=== PATIENT | female | born 1930 | race Caucasian/White ===

== ENCOUNTER 2016-07-09 00:53 | Emergency (ER) | payer MEDICARE, BC ==
[2016-07-09] MEDS ORDERED: Metoprolol Tartrate 25 MG Tab PO ONE (02:10)
--- NOTE | 2016-07-09 02:10 | EDM.PDOC ---
ED HPI Trauma - General Chief Complaint: General Stated Complaint: L) wrist swelling and numbness Time Seen by Provider: 07/09/16 01:37 Source: Reports: Patient History Limitations: Reports: No limitations - History of Present Illness INITIAL COMMENTS - FREE TEXT/NARRATIVE: Left wrist pain and swelling that was first noted yesterday morning after patient woke up from sleep. Now with some redness. Has tingling sensation in all fingers. Sometimes has discomfort that radiates up her arm at times. Denies fevers/chills/sweats. No history of similar problem in past. No history of trauma. No other complaints. Allergies/ADRs: Allergies Penicillins Allergy (Verified 09/26/13 17:01) Rash Sulfa (Sulfonamide Antibiotics) Allergy (Verified 07/09/16 01:12) Other Home Medications: Ambulatory Orders Aspirin [Jordyn Chewable Aspirin] 81 mg PO DAILY 09/26/13 [Confirmed 07/09/16] Cholecalciferol (Vitamin D3) [Vitamin D3] 2,000 unit PO DAILY PRN 09/26/13 [ Confirmed 07/09/16] Famotidine 20 mg PO BID PRN 09/26/13 [Confirmed 07/09/16] Fluticasone Propionate [Flonase] 16 gm NS DAILY 09/26/13 [Confirmed 07/09/16] Fluticasone/Salmeterol [Advair 500-50] 1 puff INH DAILY 09/26/13 [Confirmed ] Hydroxychloroquine [Plaquenil] 200 mg PO DAILY 09/26/13 [Confirmed 07/09/16] Lisinopril [Zestril] 20 mg PO QPM 09/26/13 [Confirmed 07/09/16] Multivitamin [Multi-Vitamin Daily] 1 each PO DAILY 09/26/13 [Confirmed 07/09/16] Omeprazole 20 mg PO BEDTIME 09/26/13 [Confirmed 07/09/16] Pravastatin [Pravachol] 10 mg PO BEDTIME 09/26/13 [Confirmed 07/09/16] Vit A/Vit C/Vit E/Zinc/Copper [Preservision] 1 each PO DAILY 09/26/13 [ Confirmed 07/09/16] Zafirlukast [Accolate] 20 mg PO BID 09/26/13 [Confirmed 07/09/16] Past Medical History Cardiovascular History: Reports: High cholesterol, Hypertension Respiratory History: Reports: COPD Gastrointestinal History: Reports: GERD Musculoskeletal History: Reports: Osteoarthritis, Other (see below) (Was told she did not have rhumatoid arthritis) Social & Family History - Tobacco Use Smoking Status *Q: Never Smoker Second Hand Smoke Exposure: Yes - Caffeine Use Caffeine Use: Reports: Coffee - Alcohol Use Days Per Week of Alcohol Use: 0 - Recreational Drug Use Recreational Drug Use: No - Living Situation & Occupation Living situation: Reports: (In 1950) Occupation: unemployed ([employer] ) Review of Systems - Review of Systems Review Of Systems: ROS reveals no pertinent complaints other than HPI. Trauma Exam - Physical Exam Exam: See Below Exam Limited By: No limitations General Appearance: Reports: alert, WD/WN, no apparent distress Head: Reports: atraumatic, normocephalic Eyes: bilateral eye: EOMI Throat/Mouth: Reports: Normal voice, No airway compromise Neck: Reports: full range of motion Respiratory Exam: Reports: no respiratory distress Extremities: Reports: other (Left wrist swollen, puffy, red, warm to touch. Both medially and laterally. Fingers did not appear more puffy when compared to right hand.) Neurologic: Reports: alert, normal mood/affect, oriented x 3 Skin: Denies: Diaphoresis Course - Vital Signs Last Recorded V/S: Last Vital Signs Temp 36.6 C 07/09/16 00:55 Pulse 97 07/09/16 01:47 Resp 20 07/09/16 01:47 BP 169/78 H 07/09/16 01:47 Pulse Ox 96 07/09/16 01:47 - Orders/Labs/Meds Orders: Active Orders 24 hr Category Date Time Status Wrist Comp Min 3V Lt [CR] Stat Exams 07/09/16 01:07 Taken ESR [SEDIMENTATION RATE MANUAL] [HEME] Stat Lab 07/09/16 01:49 Ordered Labs: Laboratory Tests 07/09/16 07/09/16 Range/Units 01:15 01:15 WBC 6.3 (4.0-10.2) K/uL RBC 4.28 (3.77-5.09) M/uL Hgb 12.7 (11.7-15.5) g/dL Hct 37.5 (34.0-46.0) % MCV 87.6 (84.0-98.0) fL MCH 29.7 (28.2-33.3) pg MCHC 33.9 (31.7-36.0) g/dL RDW 13.0 (11.2-14.1) % Plt Count 188 (150-350) K/uL Neut % (Auto) 47.1 (45.0-80.0) % Lymph % (Auto) 28.2 (10.0-50.0) % [place] % (Auto) 19.3 H (2.0-14.0) % Eos % (Auto) 4.6 (0.0-5.0) % Baso % (Auto) 0.8 (0.0-2.0) % Neut # (Auto) 2.97 (1.40-7.00) K/uL Lymph # (Auto) 1.78 (0.50-3.50) K/uL [place] # (Auto) 1.22 H (0.00-1.00) K/uL Eos # (Auto) 0.29 (0.00-0.50) K/uL Baso # (Auto) 0.05 (0.00-0.20) K/uL Uric Acid 4.5 (2.6-7.2) mg/dL C-Reactive Protein 0.5 (<=0.9) mg/dL Meds: Medications Discontinued Medications Generic Name Dose Route Start Last Admin Trade Name Freq PRN Reason Stop Dose Admin Metoprolol Tartrate 25 mg 07/09/16 02:10 Lopressor PO 07/09/16 02:11 ONETIME ONE - Radiology Interpretation Free Text/Narrative:: Wrist xray shows age-related changes to bones/joints but no obvious fracture. - Re-Assessments/Exams Free Text/Narrative Re-Assessment/Exam: 07/09/16 02:24 Normal WBC. CRP and Uric acid normal. ESR pending being performed later today. Biggest concern is possible septic joint. Cannot fully rule out possible vascular issue and need for US study. Differential also includes gout however uric acid normal. Plan at this time is to have patient go to [place] for evaluation at [facility]. They have US available and can also perform joint aspiration for further workup. Ortho available for consult. Single dose Metoprolol give prior to discharge from ER as patient's BP elevated. She did take ASA prior to coming to the ER. Departure - Departure Time of Disposition: 02:08 Disposition: DC/Tfer to Acute Hospital 02 Condition: good Clinical Impression: Pain and swelling of left wrist Referrals: PCP,None [Primary Care Provider] - Forms: ED Department Discharge, Interfacility Transfer [facility] Additional Instructions: Drive directly to [facility] for further evaluation. - My Orders Last 24 Hours: My Active Orders 07/09/16 01:07 Wrist Comp Min 3V Lt [CR] Stat 07/09/16 01:49 ESR [SEDIMENTATION RATE MANUAL] [HEME] Stat - Assessment/Plan Last 24 Hours: My Active Orders 07/09/16 01:07 Wrist Comp Min 3V Lt [CR] Stat 07/09/16 01:49 ESR [SEDIMENTATION RATE MANUAL] [HEME] Stat
[2016-07-09 02:35] VITALS: BP 164/84
== END 2016-07-09 02:29 ==
LOC: LL.ED 00:53
DX: M25.432 Effusion, left wrist (principal); E78.00 Pure hypercholesterolemia, unspecified; I10 Essential (primary) hypertension; J44.9 Chronic obstructive pulmonary disease, unspecified; K21.9 Gastro-esophageal reflux disease without esophagitis; M19.90 Unspecified osteoarthritis, unspecified site; Z88.0 Allergy status to penicillin; Z88.2 Allergy status to sulfonamides; Z79.899 Other long term (current) drug therapy
CPT/HCPCS: 36415; 73110; 84550; 85025; 85651; 86140; 99284; A9270

== ENCOUNTER 2016-12-12 19:27 | Emergency (ER) | payer MEDICARE, BC ==
[2016-12-12] MEDS ORDERED: Albuterol/Ipratropium 3.0-0.5 MG/3 ML Neb Soln NEB ONE (20:00)
--- NOTE | 2016-12-12 20:13 | EDM.PDOC ---
ED HPI GENERAL MEDICAL PROBLEM - General Chief Complaint: General Stated Complaint: Short of breath Time Seen by Provider: 12/12/16 19:50 Source of Information: Reports: Patient History Limitations: Reports: No Limitations - History of Present Illness INITIAL COMMENTS - FREE TEXT/NARRATIVE: Patient is a 86-year-old who for the past 2 weeks had has progressive shortness of breath she has history of COPD and was seen by primary a few days ago and started on albuterol inhaler patient was using the inhaler about 4 times a day but as of today was having increased difficulty breathing came in for evaluation he denies any fever cough. 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 Treatments - Related Data Allergies Allergy/AdvReac Type Severity Reaction Status Date / Time Penicillins Allergy Rash Verified 09/26/13 17:01 Sulfa (Sulfonamide Allergy Other Verified 07/09/16 01:12 Antibiotics) Home Meds: Home Meds Aspirin [Jordyn Chewable Aspirin] 81 mg PO DAILY 09/26/13 [History] Cholecalciferol (Vitamin D3) [Vitamin D3] 2,000 unit PO DAILY PRN 09/26/13 [ History] Famotidine 20 mg PO BID PRN 09/26/13 [History] Fluticasone Propionate [Flonase] 16 gm NS DAILY 09/26/13 [History] Fluticasone/Salmeterol [Advair 500-50] 1 puff INH DAILY 09/26/13 [History] Hydroxychloroquine [Plaquenil] 200 mg PO DAILY 09/26/13 [History] Lisinopril [Zestril] 20 mg PO QPM 09/26/13 [History] Multivitamin [Multi-Vitamin Daily] 1 each PO DAILY 09/26/13 [History] Omeprazole 20 mg PO BEDTIME 09/26/13 [History] Pravastatin [Pravachol] 10 mg PO BEDTIME 09/26/13 [History] Vit A/Vit C/Vit E/Zinc/Copper [Preservision] 1 each PO DAILY 09/26/13 [History] Zafirlukast [Accolate] 20 mg PO BID 07/01/14 [History] Past Medical History Cardiovascular History: Reports: High Cholesterol, Hypertension Respiratory History: Reports: COPD Gastrointestinal History: Reports: GERD Musculoskeletal History: Reports: Osteoarthritis, Other (See Below) Social & Family History - Tobacco Use Smoking Status *Q: Never Smoker Second Hand Smoke Exposure: Yes - Caffeine Use Caffeine Use: Reports: Coffee - Alcohol Use Days Per Week of Alcohol Use: 0 - Recreational Drug Use Recreational Drug Use: No - Living Situation & Occupation Living situation: Reports: Occupation: Unemployed ED ROS GENERAL - Review of Systems Review Of Systems: See Below Constitutional: Reports: No Symptoms HEENT: Reports: No Symptoms Respiratory: Reports: Shortness of Breath Cardiovascular: Reports: No Symptoms Endocrine: Reports: No Symptoms GI/Abdominal: Reports: No Symptoms : Reports: No Symptoms Musculoskeletal: Reports: No Symptoms Skin: Reports: No Symptoms Neurological: Reports: No Symptoms Psychiatric: Reports: No Symptoms Hematologic/Lymphatic: Reports: No Symptoms Immunologic: Reports: No Symptoms ED EXAM, GENERAL - Physical Exam Exam: See Below Exam Limited By: No Limitations General Appearance: Alert, WD/WN, Mild Distress Ears: Normal External Exam, Normal Canal, Hearing Grossly Normal, Normal TMs Nose: Normal Inspection, Normal Mucosa, No Blood Throat/Mouth: Normal Inspection, Normal Lips, Normal Teeth, Normal Gums, Normal Oropharynx, Normal Voice, No Airway Compromise Head: Atraumatic, Normocephalic Neck: Normal Inspection, Supple, Non-Tender, Full Range of Motion Respiratory/Chest: Respiratory Distress, Decreased Breath Sounds, Wheezing Cardiovascular: Normal Peripheral Pulses, Regular Rate, Rhythm, No Edema, No Gallop, No JVD, No Murmur, No Rub GI/Abdominal: Normal Bowel Sounds, Soft, Non-Tender, No Organomegaly, No Distention, No Abnormal Bruit, No Mass (Female) Exam: Deferred Rectal (Female) Exam: Deferred Back Exam: Normal Inspection, Full Range of Motion, NT Extremities: Normal Inspection, Normal Range of Motion, Non-Tender, Normal Capillary Refill, No Pedal Edema Neurological: Alert, Oriented, CN II-XII Intact, Normal Cognition, Normal Gait, Normal Reflexes, No Motor/Sensory Deficits Psychiatric: Normal Affect, Normal Mood Skin Exam: Warm, Dry, Intact, Normal Color, No Rash Course - Vital Signs Last Recorded V/S: Last Vital Signs Temp 98.5 F 12/12/16 19:28 Pulse 99 12/12/16 19:28 Resp 24 H 12/12/16 19:28 BP 202/82 H 12/12/16 19:28 Pulse Ox 96 12/12/16 19:28 - Orders/Labs/Meds Orders: Active Orders 24 hr Category Date Time Status RT Aerosol Therapy [RC] ASDIRECTED Care 12/12/16 20:01 Active Chest 2V [CR] Stat Exams 12/12/16 20:00 Ordered BASIC METABOLIC PANEL,BMP [CHEM] Stat Lab 12/12/16 19:59 Ordered CBC WITH AUTO DIFF [HEME] Stat Lab 12/12/16 19:59 Ordered PRO B-TYPE NATRIUR PEPT,BNPPRO [CHEM] Stat Lab 12/12/16 19:59 Ordered Meds: Medications Discontinued Medications Generic Name Dose Route Start Last Admin Trade Name Freq PRN Reason Stop Dose Admin Albuterol/Ipratropium 3 ml 12/12/16 20:00 Duoneb 3.0-0.5 Mg/3 Ml NEB 12/12/16 20:01 ONETIME ONE Departure - Departure Time of Disposition: 20:58 Disposition: Home, Self-Care 01 Condition: Fair Clinical Impression: COPD, Mild chronic obstructive pulmonary disease - Discharge Information Referrals: Jose Vanessa, PA [Primary Care Provider] - Care Plan Goals: Patient to take prednisone 20 mg twice a day for 5 days she is to follow-up with her primary in 3 days continue taking inhaler 2 puffs every 4 hours as needed - My Orders Last 24 Hours: My Active Orders 12/12/16 19:59 BASIC METABOLIC PANEL,BMP [CHEM] Stat CBC WITH AUTO DIFF [HEME] Stat PRO B-TYPE NATRIUR PEPT,BNPPRO [CHEM] Stat 12/12/16 20:00 Chest 2V [CR] Stat 12/12/16 20:01 RT Aerosol Therapy [RC] ASDIRECTED - Assessment/Plan Last 24 Hours: My Active Orders 12/12/16 19:59 BASIC METABOLIC PANEL,BMP [CHEM] Stat CBC WITH AUTO DIFF [HEME] Stat PRO B-TYPE NATRIUR PEPT,BNPPRO [CHEM] Stat 12/12/16 20:00 Chest 2V [CR] Stat 12/12/16 20:01 RT Aerosol Therapy [RC] ASDIRECTED
[2016-12-12] MEDS ORDERED: methylPREDNISolone Sod Succ 125 MG in Sodium Chloride 0.9% 100 ML IV ONE (20:25)
[2016-12-12 20:28] LABS: CHLORIDE,CL 101 mmol/L (98-107); SODIUM,NA 138 mmol/L (136-145)
[2016-12-12] MEDS ORDERED: methylPREDNISolone Sodium Succinate 125 MG/2 ML SDV IVPUSH ONE (20:31)
[2016-12-12] MEDS ORDERED: Sodium Chloride 0.9% 10 ML Syringe FLUSH PRN (20:39)
[2016-12-13 06:14] VITALS: BP 165/75
== END 2016-12-12 21:00 | disposition home or self-care (01) ==
LOC: LL.ED 19:27
DX: J44.9 Chronic obstructive pulmonary disease, unspecified (principal); E78.00 Pure hypercholesterolemia, unspecified; I10 Essential (primary) hypertension; K21.9 Gastro-esophageal reflux disease without esophagitis; M19.90 Unspecified osteoarthritis, unspecified site; Z88.0 Allergy status to penicillin; Z88.2 Allergy status to sulfonamides; Z79.82 Long term (current) use of aspirin; Z79.899 Other long term (current) drug therapy
CPT/HCPCS: 36415; 71020; 80048; 83880; 85025; 94640; 96374; 99285; J2930; J7050; 94664; 99284

== ENCOUNTER 2020-03-15 01:20 | Emergency (ER) | payer MEDICARE, BC ==
--- NOTE | 2020-03-15 01:44 | EDM.PDOC ---
ED HPI GENERAL MEDICAL PROBLEM - General Chief Complaint: Cardiovascular Problem Stated Complaint: HTN Time Seen by Provider: 03/15/20 01:35 Source of Information: Reports: Patient, Family (Daughter, Elizabeth), Old Records ([facility] chart/EMR) History Limitations: Reports: No Limitations - History of Present Illness INITIAL COMMENTS - FREE TEXT/NARRATIVE: The patient was brought to the emergency room via private automobile for evaluation of her blood pressures with patient having elevated blood pressures this evening after taking her to usual nebulizer treatments. She measured her blood pressure at 11:25 PM with blood pressure 188/104 with last blood pressure prior to arrival of 208/113. She denies any medication noncompliance. The patient denies any chest pain/pressure, heart flutter, dizziness, orthostasis, orthopnea, diaphoresis, paresthesias, recent decreased exercise tolerance, or any other anginal-type symptoms. No recent history of abdominal pain, heartburn, nausea, diarrhea, melena, gross hematochezia, or any food intolerance, including fatty foods, etc.. The patient also denies any recent fever, cough, wheezing, dyspnea, etc.. No history of recent visual changes, diplopia, change in mental status, or other change in neurological status, although a mild 3/10 bilateral frontal headache earlier this evening with headache resolved after 325 mg of aspirin was taken at that time. Onset: Gradual Onset Date: 03/14/20 Onset Time: 23:25 Duration: Improving (Headache), Resolved Prior to Arrival (Headache) Location: Reports: Head Quality: Reports: Dull, Same as Previous Episode Severity: Mild Improves with: Reports: Medication Worsens with: Reports: None Context: Reports: Other (None). Denies: Sick Contact, Trauma Associated Symptoms: Reports: Headaches. Denies: Confusion, Chest Pain, Cough, Diaphoresis, Fever/Chills, Malaise, Nausea/Vomiting, Seizure, Shortness of Breath, Syncope, Weakness Treatments APPLICATION DEVELOPMENT TEAM LEAD: Reports: Aspirin Headache Pain Score (Numeric/FACES): 3 - Related Data Allergies Allergy/AdvReac Type Severity Reaction Status Date / Time Penicillins Allergy Rash Verified 03/15/20 01:35 Sulfa (Sulfonamide Allergy Other Verified 03/15/20 01:35 Antibiotics) Home Meds: Home Meds Aspirin [Halfprin] 81 mg PO DAILY PRN 12/13/16 [History] Cholecalciferol (Vitamin D3) [Vitamin D3] 2 tab PO DAILY 12/13/16 [History] Famotidine 20 mg PO BID 12/13/16 [History] Fluticasone Propionate [Flonase] 2 spray NASBOTH DAILY 12/13/16 [History] Vit C/E/Zn/Coppr/Lutein/Zeaxan [Preservision Areds 2 Softgel] 1 each PO BID 12/13/16 [History] lisinopriL [Zestril] 20 mg PO DAILY 12/13/16 [History] Albuterol Sulfate [Albuterol Sulfate Hfa] 1 - 2 puff IH Q4HR 03/15/20 [History] Ascorbate Calcium [Vitamin C] 500 mg PO DAILY 03/15/20 [History] Elderberry Fruit and Flower [Black Elderberry 575 mg Cap] 1 each PO DAILY 03/15/20 [History] Formoterol Fumarate [Perforomist] 2 ml IH BID 03/15/20 [History] Montelukast Sodium [Singulair] 10 mg PO BEDTIME 03/15/20 [History] Zinc Gluconate [Zinc] 75 mg PO DAILY 03/15/20 [History] amLODIPine [Norvasc] 5 mg PO QPM #30 tab 03/15/20 [Rx] Past Medical History HEENT History: Reports: Allergic Rhinitis, Cataract, Hard of Hearing, Impaired Vision, Macular Degeneration, Other (See Below). Denies: Glaucoma, Otitis Media, Retinal Detachment Other HEENT History: Macular degeneration of the left eye with current injection therapy. The patient does prophylaxis. 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 Cardiovascular History: Reports: Arrhythmia, Heart Murmur, High Cholesterol, Hypertension, PVD, Other (See Below). Denies: Afib, Aneurysm, Blood Clots /VTE/DVT, CAD, Cardiomyopathy, Heart Failure, MS, Syncope Other Cardiovascular History: First-degree AV block, PACs, and PVCs with borderline incomplete right bundle branch block with exercise. Aortic valve stenosis and mitral valve insufficiency by clinical exam with additional history of tricuspid valve insufficiency. Varicose veins. Carotid occlusive disease. Respiratory History: Reports: Bronchitis, Recurrent, COPD, Other (See Below). Denies: Asthma, Intubation, Difficult, Intubation, Previous, Pneumothorax, Sleep Apnea Other Respiratory History: COPD with nocturnal hypoxia with no current oxygen supplementation Gastrointestinal History: Reports: Cholelithiasis, Colon Polyp, Diverticulosis, Fecal Incontinence, Gastritis, GERD, Other (See Below). Denies: Celiac Disease, Chronic Constipation, Chronic Diarrhea, GI Bleed, Hepatitis, Inflammatory Bowel Disease, Irritable Bowel Syndrome, Jaundice, PUD Other Gastrointestinal History: Benign colonic polyps at the hepatic flexure and sigmoid regions on 02/27/2010. Positive H. pylori on 09/21/2001 with previous hemorrhagic gastritis by EGD. Duodenal polyp and duodenitis. Benign renal and hepatic cysts. Genitourinary History: Reports: Urinary Incontinence, Other (See Below). Denie s: Acute Renal Failure, Chronic Renal Insuffiency, Renal Calculus, Retention, Urinary, STD, UTI, Recurrent Other Genitourinary History: Proteinuria. Cystocele with urinary incontinence. 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 Full term without complications during pregnancies or deliveries. Musculoskeletal History: Reports: Arthritis, Back Pain, Chronic, Fracture, Neck Pain, Chronic, Osteoarthritis, Osteoporosis, Other (See Below). Denies: Gout, RA, SLE Other Musculoskeletal History: Right fifth metacarpal fracture on 08/17/2010. Hyperuricemia and history of pseudogout. Carpal tunnel syndrome with no surgeries. Cervical spondylosis by CT scan on 11/30/2006. Neurological History: Reports: Alzheimers Disease, Other (See Below). Denies: Cerebral Aneurysms, Concussion, CVA, Headaches, Chronic, Head Trauma, Migraines, MS, Neuropathy, Diabetic (Headaches), Neuropathy, Peripheral, Parkinson's (Any previous), Seizure, TIA Other Neuro History: Mild beginning organic brain syndrome. Psychiatric History: Reports: Alzheimers Disease, Anxiety, Dementia, Depression, Other (See Below). 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 Possible beginning brain syndrome. Endocrine/Metabolic History: Reports: Osteopenia, Osteoporosis, Other (See Below). Denies: Diabetes, Gestational, Diabetes, Type I, Diabetes, Type II, Diabetes Mellitus, Type 3c, Hypothyroidism, IDDM Other Endocrine/Metabolic History: Hyperglycemia with proteinuria as above. Hematologic History: Reports: Blood Transfusion(s), Other (See Below). Denies: Anemia, Iron Deficiency Other Hematologic History: Blood transfusion after cholecystectomy, etc. surgery in August 1958 as below. Immunologic History: Reports: None. Denies: AIDS, HIV, SLE Oncologic (Cancer) History: Reports: None. Denies: Basal Cell Carcinoma, Cervix, Colon, Hodgkin's Lymphoma, Leukemia, Lymphoma, Malignant Melanoma, Non- Hodgkin's Lymphoma, Ovarian, Squamous Cell Carcinoma, Uterine Dermatologic History: Reports: Eczema, Seborrheic Dermatitis, Other (See Below). Denies: Psoriasis Other Dermatologic History: Seborrheic keratosis. - Infectious Disease History Infectious Disease History: Reports: Chicken Pox, Measles, Shingles (Facial/forehead region the 1980s.), Other (See Below). 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 - Past Surgical History Head Surgeries/Procedures: Reports: None HEENT Surgical History: Reports: Oral Surgery, Other (See Below). Denies: Adenoidectomy, Cataract Surgery, Eye Surgery, Laser Surgery, LASIK, Myringotomy w Tube(s), Naso-Sinus Surgery, Tonsillectomy Other HEENT Surgeries/Procedures: Teeth extractions. Cardiovascular Surgical History: Reports: None. Denies: Varicose Respiratory Surgical History: Reports: None. Denies: Thoracentesis GI Surgical History: Reports: Appendectomy, Cholecystectomy, Colonoscopy, EGD, Polypectomy, Other (See Below). Denies: Hernia, Inguinal, Hernia Repair/Other Other GI Surgeries/Procedures: Open cholecystectomy with concomitant appendectomy and removal of a benign right ovarian cyst on 08/31/1958 with postoperative transfusion required. EGD on 09/26/2007 with results as above. Multiple previous colonoscopies including 02/26/2010 and 09/26/2007 with previous polypectomies as above. Female Surgical History: Reports: Other (See Below). Denies: Breast Biopsy, Section, D&C, Oophorectomy, Salpingo-Oophorectomy, Tubal Ligation Other Female Surgeries/Procedures: Excision of benign ovarian cyst as above. Endocrine Surgical History: Reports: None. Denies: Thyroid Biopsy Neurological Surgical History: Denies: C-Spine, Discectomy, Laminectomy, Lumbar Spine, Spinal Fusion, Thoracic Spine, Vertebroplasty Musculoskeletal Surgical History: Reports: None. Denies: Carpal Tunnel, Ganglion Cyst, Joint Replacement, ORIF, Shoulder Surgery Oncologic Surgical History: Reports: None Dermatological Surgical History: Reports: None - Past Imaging History Past Imaging History: Reports: Cardiac Echo (04/14/1999), Carotid US (Last on 12/15/2006.), DEXA Scan (Last on 08/13/2016.), Mammogram (02/12/2011.), PFT (Last on 01/12/2008), Sleep Study (Home nocturnal O2 evaluation on 03/14/2006.), Stress Testing (Cardiolite stress test last on 10/23/2004.), Ultrasound (Last abdominal ultrasound on 12/15/2006.), Other (See Below) (NC stat evaluation on 12/15/2007.) Social & Family History - Family History Cardiac: Reports: Arrhythmia, CAD, Heart Failure, Hypertension, MS Other Cardiac Family History: Father with fatal MS and CHF at age 59. Sister with fatal MS at age 78. Mother with unknown type of coronary artery disease. Hypertension in parents and sister. Daughter with PSVT in her 40s. Respiratory: Reports: Asthma, Other (See Below) Other Respiratory Family Hisory: Asthma in son, mother, sister, and grandson. GI: Reports: Colon Polyps, Other (See Below) Other GI Family History: Sister with colonic polyps. Neurological: Reports: CVA, Parkinson's, Other (See Below) Other Neurological Family History: Son with Parkinson's disease. Mother with CVA in her 70s. Father with CVA in his 50s. Endocrine/Metabolic: Reports: Diabetes, type II, IDDM, Other (See Below) Other Endocrine/Metabolic Family History: Father with AODM. Sister with IDDM. Nephew with type I IDDM. - Tobacco Use Tobacco Use Status *Q: Never Tobacco User Used Tobacco, but Quit: No Smoking Cessation Information Provided To Patient: No Second Hand Smoke Exposure: No Second Hand Smoke Education Provided: No - Caffeine Use Caffeine Use: Reports: Coffee (4 cups/day), Tea (Occasional). Denies: Energy Drinks, Soda - Alcohol Use Alcohol Use History: Yes Days Per Week of Alcohol Use: 0 Number of Drinks Per Day: 1 Number of Drinks Per Day Comment: Usually wine for holidays. No previous DWIs, problems with alcohol abuse, etc. Total Drinks Per Week: 0 Alcohol Use in Last Twelve Months: Yes Alcohol Use Frequency: Rarely - Recreational Drug Use Recreational Drug Use: No Drug Use in Last 12 Months: No Recreational Drug Type: Denies: Amphetamines (Speed), Heroin, Inhalants (Glues, Solvents, Aerosols), LSD (Acid), Marijuana/Hashish, Methamphetamine, Morphine, Oxycodone - Living Situation & Occupation Living situation: Reports: (1949.), with Family () Occupation: Unemployed ([employer]) ED ROS GENERAL - Review of Systems Review Of Systems: Comprehensive ROS is negative, except as noted in HPI. ED EXAM, GENERAL - Physical Exam Exam: See Below Exam Limited By: No Limitations General Appearance: Alert, WD/WN, No Apparent Distress, Anxious (Mild) Eye Exam: Bilateral Eye: EOMI, Normal Fundi, Normal Inspection (Patient is wearing glasses. No vertigo or nystagmus), PERRL Ears: Normal External Exam, Hearing Loss (Persistent moderate presbycusis despite bilateral hearing aid therapy) Nose: Normal Inspection, Normal Mucosa, No Blood Throat/Mouth: Normal Inspection, Normal Lips, Normal Teeth, Normal Gums, Normal Oropharynx, Normal Voice, No Airway Compromise. No: Dysphagia, Perioral Cyanosis Head: Atraumatic, Normocephalic. No: Facial Swelling, Facial Tenderness, Sinus Tenderness Neck: Supple, Non-Tender, Full Range of Motion, Carotid Bruit (Mild bilateral carotid bruits versus transmitted heart sounds). No: Lymphadenopathy (L), Lymphadenopathy (R), Thyromegaly Respiratory/Chest: No Respiratory Distress, Lungs Clear, Normal Breath Sounds, No Accessory Muscle Use, Chest Non-Tender. No: Pleural Rub, Retractions Cardiovascular: Normal Peripheral Pulses, Regular Rate, Rhythm, No Edema, No Gallop, No JVD, No Rub, Systolic Murmur (Mild 1/6 MALIKA of aortic and mitral va lves.). No: Gallop/S3, Gallop/S4, Friction Rub Peripheral Pulses: 2+: Radial (L), Radial (R), Dorsalis Pedis (L), Dorsalis Pedis (R) GI/Abdominal: Normal Bowel Sounds, Soft, Non-Tender, No Organomegaly, No Distention, No Abnormal Bruit, No Mass. No: Guarding (Female) Exam: Deferred Rectal (Female) Exam: Deferred Back Exam: Normal Inspection, Full Range of Motion. No: CVA Tenderness (L), CVA Tenderness (R), Muscle Spasm Extremities: Normal Inspection, Normal Range of Motion, Non-Tender, No Pedal Edema, Normal Capillary Refill. No: Greg's Sign Neurological: Alert, Oriented, CN II-XII Intact, Normal Cognition, Normal Gait, Normal Reflexes, No Motor/Sensory Deficits Psychiatric: Anxious (Mild). No: Depressed Mood Skin Exam: Warm, Dry, Intact, Normal Color, No Rash. No: Diaphoretic Lymphatic: No Adenopathy Course - Vital Signs Last Recorded V/S: Last Vital Signs Temp 36.5 C 03/15/20 01:20 Pulse 90 03/15/20 02:50 Resp 18 03/15/20 01:20 BP 161/81 H 03/15/20 02:50 Pulse Ox 98 03/15/20 01:35 Vital Signs - 24 hr 03/15/20 03/15/20 03/15/20 01:20 01:35 02:07 Temperature [ 36.5 C Temporal] Pulse, 101 H 94 91 Peripheral [ Pulse Oximetry] Respiratory 18 Rate Blood Pressure Blood Pressure 200/90 H [Left Upper Arm ] Blood Pressure 191/90 H 190/92 H 171/81 H [Right Upper Arm] O2 Sat by Pulse 98 98 Oximetry 03/15/20 03/15/20 03/15/20 02:15 02:23 02:50 Temperature [ Temporal] Pulse, 91 90 Peripheral [ Pulse Oximetry] Respiratory Rate Blood Pressure 171/81 H Blood Pressure 160/87 H [Left Upper Arm ] Blood Pressure 161/81 H [Right Upper Arm] O2 Sat by Pulse Oximetry - Orders/Labs/Meds Orders: Active Orders 24 hr Category Date Time Status Cardiac Monitoring [RC] . DIRECTED Care 03/15/20 01:45 Active Peripheral IV Care [RC] . DIRECTED Care 03/15/20 01:45 Active Sodium Chloride 0.9% [Saline Flush] Med 03/15/20 01:51 Active 10 ml FLUSH ASDIRECTED PRN Obtain Past Medical Record [OM.PC] Routine Oth 03/15/20 01:44 Active Medication Orders Sodium Chloride (Saline Flush) 10 ml FLUSH ASDIRECTED PRN PRN Reason: Keep Vein Open Last Admin: 03/15/20 01:51 Dose: 10 ml Documented by: MOE Labs: None Meds: Medications Generic Name Dose Route Start Last Admin Trade Name Freq PRN Reason Stop Dose Admin Sodium Chloride 10 ml 03/15/20 01:51 03/15/20 01:51 Saline Flush FLUSH 10 ml ASDIRECTED PRN Administration Keep Vein Open Discontinued Medications Generic Name Dose Route Start Last Admin Trade Name Freq PRN Reason Stop Dose Admin Amlodipine Besylate 5 mg 03/15/20 02:07 03/15/20 02:15 Norvasc PO 03/15/20 02:08 5 mg ONETIME ONE Administration Labetalol HCl 10 mg 03/15/20 01:45 03/15/20 01:48 Normodyne IVPUSH 03/15/20 01:46 10 mg ONETIME ONE Administration Protocol Labetalol HCl 10 mg 03/15/20 02:06 03/15/20 02:15 Normodyne IVPUSH 03/15/20 02:07 10 mg ONETIME ONE Administration Protocol - Radiology Interpretation Free Text/Narrative:: court monitor shows normal sinus rhythm with heart rate in the 90s with no ectopy or arrhythmia. Departure - Departure Time of Disposition: 03:10 Disposition: Home, Self-Care 01 Condition: Good Clinical Impression: HTN, Benign hypertension, Peptic reflux disease, Osteoarthritis, Mixed anxiety depressive disorder, COPD, Mild chronic obstructive pulmonary disease Prescriptions: amLODIPine [Norvasc] 5 mg PO QPM #30 tab Instructions: How to Take Your Blood Pressure, Form - Blood Pressure Record Sheet, Hypertension, Adult, [id number], Amlodipine tablets Referrals: Jose Vanessa PA [Primary Care Provider] - Forms: ED Department Discharge Additional Instructions: 1. Followup with your regular provider in 7-10 days as directed. Bring these discharge instructions with you to that visit. 2. Continue taking your blood pressures twice a day, i.e. before your morning medications and before your evening medicines, as discussed and bring this record with you to every doctor's appointment. 3. Keep blood pressure check appointment on 03/21 as already scheduled. 4. Immediately after this visit verify that your cellular telephone's voicemail has been activated and is empty. Also verify that your home telephone's answering machine is operating properly and has space to receive messages. Note that it is sometimes necessary for us to be able to contact you at a later date to discuss your medical care. 5. Please remember that we are ALWAYS here for you and want to answer any questions you may have. Feel free to call the hospital any time and we call you back KARRIE. Sepsis Event Note (ED) - Evaluation Sepsis Screening Result: No Definite Risk - Focused Exam Vital Signs: Vital Signs Temp Pulse Resp BP BP BP Pulse Ox 03/15/20 02:50 90 161/81 H 03/15/20 02:23 91 160/87 H 03/15/20 02:15 171/81 H 03/15/20 02:07 91 171/81 H 03/15/20 01:35 94 190/92 H 98 03/15/20 01:20 36.5 C 101 H 18 200/90 H 191/90 H 98 - Problem List & Annotations (1) HTN, Benign hypertension SNOMED Code(s): 35058090 Code(s): I10 - ESSENTIAL (PRIMARY) HYPERTENSION Status: Chronic Priority: High Current Visit: No Annotation/Comment:: Moderately poor control based on today's evaluation. Note aggressive treatment as above with improved blood pressures prior to discharge. No neurological symptoms or deficits by clinical exam. She also denies any cardiac type symptoms. Twice daily blood pressure and pulse checks were discussed with record to be brought to every appointment as per discharge instructions. Initiate Norvasc with first dose given in the emergency room this evening as above. (2) Mixed anxiety depressive disorder SNOMED Code(s): 318136197 Code(s): F41.8 - OTHER SPECIFIED ANXIETY DISORDERS Status: Chronic Priority: Medium Current Visit: No Annotation/Comment:: Some anxiety component to patient's blood pressure. Stable by patient history. No current medical therapy. Continue to observe closely by her regular providers. (3) COPD, Mild chronic obstructive pulmonary disease SNOMED Code(s): 517702921 Code(s): J44.9 - CHRONIC OBSTRUCTIVE PULMONARY DISEASE, UNSPECIFIED Status: Chronic Priority: Medium Current Visit: No Annotation/Comment:: No recent fever or bronchitic type symptoms. (4) Osteoarthritis SNOMED Code(s): 257044373 Code(s): M19.90 - UNSPECIFIED OSTEOARTHRITIS, UNSPECIFIED SITE Status: Chronic Priority: Medium Current Visit: No Annotation/Comment:: Stable by patient history. The patient did receive a steroid injection of her right knee today by her regular provider. (5) Peptic reflux disease SNOMED Code(s): 070461028 Code(s): K21.9 - GASTRO-ESOPHAGEAL REFLUX DISEASE WITHOUT ESOPHAGITIS Status: Chronic Priority: Medium Current Visit: No Annotation/Comment:: Stable by patient history - Problem List Review Problem List Initiated/Reviewed/Updated: Yes - My Orders Last 24 Hours: My Active Orders 03/15/20 01:44 Obtain Past Medical Record [OM.PC] Routine 03/15/20 01:45 Cardiac Monitoring [RC] . DIRECTED Peripheral IV Care [RC] . DIRECTED 03/15/20 01:51 Sodium Chloride 0.9% [Saline Flush] 10 ml FLUSH ASDIRECTED PRN - Assessment/Plan Last 24 Hours: My Active Orders 03/15/20 01:44 Obtain Past Medical Record [OM.PC] Routine 03/15/20 01:45 Cardiac Monitoring [RC] . DIRECTED Peripheral IV Care [RC] . DIRECTED 03/15/20 01:51 Sodium Chloride 0.9% [Saline Flush] 10 ml FLUSH ASDIRECTED PRN Assessment:: As above Plan: As above. Extensive precautions were given to the patient and her daughter, who are in agreement with the treatment plan. See Patient Instructions for further treatment and plan.
[2020-03-15] MEDS ORDERED: Labetalol 20 MG/4 ML Syringe IVPUSH ONE ×2 (01:45→02:06)
[2020-03-15] MEDS ORDERED: Sodium Chloride 0.9% 10 ML Syringe FLUSH PRN (01:51)
[2020-03-15] MEDS ORDERED: amLODIPine 5 MG Tab PO ONE (02:07)
[2020-03-15 02:50] VITALS: BP 161/81; PULSE 90
== END 2020-03-15 03:10 | disposition home or self-care (01) ==
LOC: LL.ED 01:20
DX: I10 Essential (primary) hypertension (principal); K21.9 Gastro-esophageal reflux disease without esophagitis; M19.90 Unspecified osteoarthritis, unspecified site; F41.8 Other specified anxiety disorders; J44.9 Chronic obstructive pulmonary disease, unspecified; G30.9 Alzheimer's disease, unspecified; F02.80 Dementia in other diseases classified elsewhere, unspecified severity, without behavioral disturbance, psychotic disturbance, mood disturbance, and anxiety; Z88.0 Allergy status to penicillin; Z88.2 Allergy status to sulfonamides; Z79.82 Long term (current) use of aspirin; Z79.899 Other long term (current) drug therapy
CPT/HCPCS: 96374; 99283-25; A9270-GY; J3490